=== PATIENT | male | born 1945 | race Caucasian/White ===

== ENCOUNTER 2020-11-29 06:30 | Inpatient (IN) | payer MEDICARE, BC ==
[2020-11-29] VITALS (7 sets, daily range): BP systolic 142–164; BP diastolic 76–99
[~2020-11-29] VITALS: Ht 188 cm; Wt 107.1 kg
[2020-11-29] MEDS ORDERED: CYCL30DR EACHEYE (08:17)
[2020-11-29] MEDS ORDERED: DOXA2TAB PO (08:17)
[2020-11-29] MEDS ORDERED: ROSU20TA2 PO (08:17)
[2020-11-29] MEDS ORDERED: GLIP10TA10 PO (08:17)
[2020-11-29] MEDS ORDERED: ASPI-1497 PO (08:17)
[2020-11-29] MEDS ORDERED: METF-416 PO (08:17)
[2020-11-29] MEDS ORDERED: SITA100T11 PO (08:17)
[2020-11-29] MEDS ORDERED: INSU100I28 SQ (08:17)
[2020-11-29] MEDS ORDERED: GABA-532 PO (08:17)
[2020-11-29] MEDS ORDERED: TIMO5DRO32 EACHEYE (08:17)
[2020-11-29] MEDS ORDERED: MIDAZOLAM HCL 2 MG/2 ML VIAL ONE (08:40)
[2020-11-29] MEDS ORDERED: FENTANYL CITRATE/PF 50MCG/ML 2ML VIAL ONE (08:41)
[2020-11-29] MEDS ORDERED: IODIXANOL 320MG/ML 100 ML BOTTLE IV ONE (08:41)
[2020-11-29] MEDS ORDERED: LIDOCAINE HCL 1% 20ML VIAL (Pyxis) INJ ONE (08:41)
[2020-11-29] MEDS ORDERED: IOHEXOL-300 100 ML BOTTLE ONE (10:06)
[2020-11-29] MEDS ORDERED: CLOPIDOGREL 75MG TABLET ONE (10:50)
[2020-11-29] MEDS ORDERED: ASPIRIN 325MG TABLET ONE (10:50)
[2020-11-29] MEDS ORDERED: ZOLPIDEM TARTRATE 5MG TABLET PO PRN (13:30)
[2020-11-29] MEDS ORDERED: DEXTROSE 50% WATER 50ML SYRINGE IV PRN (13:30)
[2020-11-29] MEDS ORDERED: DOXA2TAB2 PO (14:08)
[2020-11-29] MEDS ORDERED: DORZ10DR9 EACHEYE (14:08)
[2020-11-29] MEDS ORDERED: NETA2.5D OP (14:08)
[2020-11-29] MEDS ORDERED: METF-874 PO (14:09)
[2020-11-29] MEDS ORDERED: HEPARIN SODIUM 1,000 UNIT/1ML VIAL IV ONE (15:15)
[2020-11-29] MEDS: BLOOD SUGAR DIAGNOSTIC STRIP TEST SCH ×2 (17:06→20:30)
[2020-11-29] MEDS: INSULIN LISPRO 100 UNITS/ML SUBCUT SCH ×2 (17:20→21:24)
[2020-11-29] MEDS ORDERED: DIPH25TA62 PO (18:36)
[2020-11-29] MEDS ORDERED: GABA-532 MT (18:41)
[2020-11-29] MEDS ORDERED: GABA-290 PO (18:41)
[2020-11-29] MEDS: DORZOLAM/TIMOLOL 2.23/0.68% OPHTH DROPS 10ML EACHEYE SCH (18:45)
[2020-11-29] MEDS ORDERED: DIPHENHYDRAMINE 25MG CAPSULE PO PRN (18:45)
[2020-11-29] MEDS ORDERED: GABAPENTIN 300MG CAPSULE PO SCH (21:00)
[2020-11-29] MEDS ORDERED: DOXAZOSIN MESYLATE 2MG TABLET PO SCH (21:00)
[2020-11-30] VITALS: BP 141/88
[2020-11-30 02:00] VITALS: BP 138/73
[2020-11-30 04:00] VITALS: BP 145/87
[2020-11-30 06:00] VITALS: BP 134/87
[2020-11-30] MEDS: BLOOD SUGAR DIAGNOSTIC STRIP TEST SCH (06:45)
[2020-11-30 06:51] LABS: HEMOGLOBIN. 12.6 g/dL (14.0-18.0); MEAN CORPUSCULAR HEMOGLOBIN 30.8 pg (28.0-32.0); MEAN CORPUSCULAR VOLUME 92.7 fL (80.0-94.0); MEAN PLATELET VOLUME 6.4 fl (7.4-10.4); PLATELET 122 x1000/uL (130-400); RED CELL DISTRIBUTION WIDTH 15.5 % (11.6-14.6)
[2020-11-30] MEDS ORDERED: METFORMIN HCL 500MG TABLET PO SCH (07:20)
[2020-11-30] MEDS: INSULIN LISPRO 100 UNITS/ML SUBCUT SCH (07:20)
[2020-11-30] MEDS ORDERED: GLIPIZIDE 10MG TABLET PO SCH (07:20)
[2020-11-30 08:00] VITALS: BP 152/80
[2020-11-30] MEDS: DORZOLAM/TIMOLOL 2.23/0.68% OPHTH DROPS 10ML EACHEYE SCH (08:49)
[2020-11-30] MEDS ORDERED: ASPIRIN 81MG TABLET PO SCH (09:00)
[2020-11-30] MEDS ORDERED: CLOPIDOGREL 75MG TABLET PO SCH (09:00)
[2020-11-30] MEDS ORDERED: ASPIRIN 81MG EC TABLET PO SCH (09:00)
[2020-11-30 09:45] VITALS: BP 141/82
[2020-11-30 09:52] LABS: PLATELET ESTIMATE SLIGHTLY DECREASED
== END 2020-11-30 10:30 | disposition home or self-care (01) | DRG 272 ==
LOC: CCL 06:30 → 3WST 06:31
PROVIDERS: ADMIT Specialist; ATTEND Specialist
PROC: 047K3DZ Dilation of Right Femoral Artery with Intraluminal Device, Percutaneous Approach (ICD-10-PCS; principal; 2020-11-29)
PROC: 04CK3ZZ Extirpation of Matter from Right Femoral Artery, Percutaneous Approach (ICD-10-PCS; 2020-11-29)
PROC: B41F1ZZ Fluoroscopy of Right Lower Extremity Arteries using Low Osmolar Contrast (ICD-10-PCS; 2020-11-29)
DX: E11.51 Type 2 diabetes mellitus with diabetic peripheral angiopathy without gangrene (principal); I10 Essential (primary) hypertension; E78.5 Hyperlipidemia, unspecified; N40.0 Benign prostatic hyperplasia without lower urinary tract symptoms; I25.10 Atherosclerotic heart disease of native coronary artery without angina pectoris; E87.5 Hyperkalemia; Z95.5 Presence of coronary angioplasty implant and graft; Z79.899 Other long term (current) drug therapy; Z79.84 Long term (current) use of oral hypoglycemic drugs; Z82.49 Family history of ischemic heart disease and other diseases of the circulatory system
CPT/HCPCS: 36415; 37227; 75710; 80048; 82962; 83036; 85025; 85347; C1724; C1725; C1760; C1769; C1887; C1893; C1894; J1644; J1815; J2250; J3010; J3490; Q0163; Q9967